=== PATIENT | female | born 1955 ===

== ENCOUNTER 2016-09-13 06:50 | Day surgery (SDC) | payer MEDICAID ==
[2016-09-13] MEDS ORDERED: Propofol 10 mg/ml Inj (20 ML) ONE (07:30)
[2016-09-13] MEDS ORDERED: Lidocaine Hydrochloride 5 ML INJ ONE (07:30)
[2016-09-13 07:33] VITALS: BMI 25.7
--- NOTE | 2016-09-13 08:21 | CP.SDSHP ---
Same Day Surgery H & P - History Proposed Procedure: Colonoscopy Pre-Op Diagnosis: Screening, average risk - Previous Medical/Surgical History Cardiac: Hypertension, Other (Hyperlipidemia) Endocrine/Metabolic: Diabetes Previous Surgical History: - Allergies Allergies: Allergies No Known Allergies Allergy (Unverified 04/22/14 17:32) - Current Medications Current Medications: reviewed, per reconciliation - Physical Exam General Appearance: wdwn nad Vital Signs: Vital Signs 09/13/16 09/13/16 07:36 08:13 Temperature 98 F 98 F Pulse Rate 80 61 Respiratory 20 20 Rate Blood Pressure 138/94 H 153/87 H O2 Sat by Pulse 97 100 Oximetry Mental Status: Alert & Oriented x3 Heart: WNL Lungs: WNL GI: WNL - {Optional Preform as Required} Abdomen: WNL - Impression Impression: screenong for colorectal neoplasm, average risk Pt. Evaluated Today:Candidate for Anesthesia & Procedure: Yes - Date & Time Date: 09/13/16 Time: 08:21 Short Stay Discharge - Short Stay Discharge Admitting Diagnosis/Reason for Visit: SCREENING FOR MAL MALIKA COLON Disposition: HOME/ ROUTINE
[2016-09-13] MEDS ORDERED: Simethicone 40 mg/0.6 ml Liquid (30 ml) ONE (08:28)
[2016-09-13 08:50] VITALS: TEMP 97.6
[2016-09-13 09:51] VITALS: BP 127/88; PULSE 70; RESP 18; O2SAT 99
== END 2016-09-13 09:45 | disposition home or self-care (01) ==
LOC: C.ENDO 06:50
PROVIDERS: ATTEND Internal Medicine Gastroenterology
DX: Z12.11 Encounter for screening for malignant neoplasm of colon (principal); K57.30 Diverticulosis of large intestine without perforation or abscess without bleeding; K64.0 First degree hemorrhoids
CPT/HCPCS: 45378; 82948; J2704